=== PATIENT | female | born 1950 | race Caucasian/White ===

== ENCOUNTER → 2017-11-25 | Outpatient (CLI) | payer MEDICARE | LOC: RAH 11-24 16:58 | PROVIDERS: ATTEND Internal Medicine | DX: M25.552 Pain in left hip (principal) | CPT/HCPCS: 73502 ==

== ENCOUNTER → 2017-12-08 | Outpatient (CLI) | payer MEDICARE | END | disposition home or self-care (01) | LOC: RAH 09:48 | PROVIDERS: ATTEND Internal Medicine | DX: R01.1 Cardiac murmur, unspecified (principal); R53.83 Other fatigue | CPT/HCPCS: 93306 ==

== ENCOUNTER → 2017-12-24 | Outpatient (CLI) | payer MEDICARE | END | disposition home or self-care (01) | LOC: RAH 09:30 | PROVIDERS: ATTEND Internal Medicine | DX: Z12.31 Encounter for screening mammogram for malignant neoplasm of breast (principal) | CPT/HCPCS: 77067 ==

== ENCOUNTER → 2018-07-26 | Outpatient (CLI) | payer MEDICARE | END | disposition home or self-care (01) | LOC: RAH 11:28 | PROVIDERS: ATTEND Internal Medicine | DX: E04.2 Nontoxic multinodular goiter (principal) | CPT/HCPCS: 76536 ==

== ENCOUNTER → 2020-07-09 | Outpatient (CLI) | payer MEDICARE | END | disposition home or self-care (01) | LOC: RAH 10:19 | PROVIDERS: ATTEND Internal Medicine | DX: E04.2 Nontoxic multinodular goiter (principal) | CPT/HCPCS: 76536 ==

== ENCOUNTER → 2020-09-10 | Outpatient (CLI) | payer MEDICARE | END | disposition home or self-care (01) | LOC: RAH 10:33 | PROVIDERS: ATTEND Internal Medicine | DX: M25.552 Pain in left hip (principal) | CPT/HCPCS: 73502 ==

== ENCOUNTER → 2020-10-22 | Outpatient (CLI) | payer MEDICARE | END | disposition home or self-care (01) | LOC: RAH 11:18 | PROVIDERS: ATTEND Internal Medicine | DX: E04.1 Nontoxic single thyroid nodule (principal) | CPT/HCPCS: 76536 ==

== ENCOUNTER → 2021-12-11 | Outpatient (CLI) | payer MEDICARE | END | disposition home or self-care (01) | LOC: RAH 13:35 | PROVIDERS: ATTEND Internal Medicine | DX: E04.2 Nontoxic multinodular goiter (principal) | CPT/HCPCS: 76536 ==

== ENCOUNTER → 2022-12-25 | Outpatient (CLI) | payer MEDICARE | END | disposition home or self-care (01) | LOC: RAH 13:01 | PROVIDERS: ATTEND Internal Medicine | DX: E04.2 Nontoxic multinodular goiter (principal) | CPT/HCPCS: 76536 ==

== ENCOUNTER → 2023-01-04 | Outpatient (CLI) | payer MEDICARE | END | disposition home or self-care (01) | LOC: RAH 08:12 | PROVIDERS: ATTEND Internal Medicine | DX: R79.89 Other specified abnormal findings of blood chemistry (principal); D69.6 Thrombocytopenia, unspecified | CPT/HCPCS: 76700 ==

== ENCOUNTER → 2023-05-12 | Outpatient (CLI) | payer MEDICARE | END | disposition home or self-care (01) | LOC: RAH 14:38 | PROVIDERS: ATTEND Internal Medicine | DX: M47.812 Spondylosis without myelopathy or radiculopathy, cervical region (principal); M54.2 Cervicalgia; M54.50 Low back pain, unspecified | CPT/HCPCS: 72040; 72070; 72100 ==

== ENCOUNTER → 2024-12-07 | Outpatient (CLI) | payer MEDICARE ==
--- NOTE | 2024-12-07 15:48 | HMCIMG ---
DEXA BONE DENSITY SURVEY HISTORY: No additional history given. COMPARISON: None FINDINGS: Bone densitometry study was performed. Bone mineral density of the lumbar spine is 0.641 gram per centimeter square which corresponds to a T score of -3.7 and a Z score of -1.4. Bone mineral density of the left hip is 0.774 grams per centimeter square which corresponds to a T score of -1.4 and a Z score of 0.3. IMPRESSION: 1. Osteoporosis of the lumbar spine and osteopenia left hip.
== END | disposition home or self-care (01) ==
LOC: RAH 14:06
PROVIDERS: ATTEND Internal Medicine
DX: Z13.820 Encounter for screening for osteoporosis (principal); M81.0 Age-related osteoporosis without current pathological fracture; M85.852 Other specified disorders of bone density and structure, left thigh
CPT/HCPCS: 77080

== ENCOUNTER → 2025-09-05 | Outpatient (CLI) | payer MEDICARE ==
--- NOTE | 2025-09-06 15:03 | HMCIMG ---
STUDY MR lumbar spine without intravenous contrast HISTORY Right-sided sciatica. TECHNIQUE Multiplanar multisequence MRI of the lumbar spine was performed without intravenous contrast. COMPARISON Lumbar spine radiographs dated 05/12/23 15:01 EDT. FINDINGS VERTEBRAE No acute compression fracture is identified. Multiple vertebral body hemangiomas are present at T10, T11, T12, and L1 with characteristic high T1 and T2 signal, without extraosseous extension or pathologic fracture. No suspicious marrow-replacing lesion is seen. ALIGNMENT There is grade I retrolisthesis of L1 on L2. Grade I anterolisthesis of L5 on S1 is present, associated with a right-sided pars interarticularis defect. Overall lumbar lordosis is preserved without high-grade listhesis. SPINAL CORD AND CAUDA EQUINA Conus medullaris terminates at a normal level with normal signal. Cauda equina nerve roots are preserved in signal; sites of exiting nerve root compromise are detailed below. DISC AND FACET FINDINGS BY LEVEL L1L2 Mild disc desiccation without significant bulge or protrusion. No central canal or foraminal stenosis. L2L3 Diffuse disc bulge with annular fissuring. There is mild bilateral neural foraminal narrowing without high-grade root deformation, compatible with mild foraminal stenosis. Central canal remains adequately patent. L3L4 Asymmetric degenerative disc disease with a posterior central to slightly right paracentral disc protrusion and annular fissure. Mild bilateral foraminal narrowing is present, without definite high-grade compression, corresponding to mild foraminal stenosis. L4L5 Advanced disc degeneration with loss of disc height and diffuse disc bulge. Mild facet arthrosis is present. These findings result in mild bilateral foraminal stenosis with perineural fat effacement and contact of the exiting L4 nerve roots, without clear morphologic collapse of the roots. No significant central canal stenosis. L5S1 Severe degenerative disc disease with diffuse disc bulge and posterior central disc protrusion on a background of grade I anterolisthesis from a right-sided pars defect. There is severe right-sided facet arthrosis. These combined changes produce right foraminal stenosis with deformity and compression of the exiting right L5 nerve root, compatible with compressive radiculopathy. Left foramen is only mildly narrowed. Central canal remains adequately patent. PARASPINAL SOFT TISSUES AND EXTRASPINAL FINDINGS Paraspinal musculature demonstrates mild chronic fatty atrophy. No paraspinal fluid collection or mass is identified. Within the limited field of view, the gallbladder demonstrates low-signal dependent material consistent with sludge and/or microlithiasis without wall thickening or pericholecystic fluid. 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 L4L5: Advanced disc degeneration with diffuse bulge and facet arthrosis resulting in mild bilateral foraminal stenosis with root contact but no high-grade compression. L3L4 and L2L3: Diffuse and asymmetric disc disease with annular fissuring and mild foraminal stenosis, without high-grade canal or foraminal compromise. * Grade I retrolisthesis of L1 on L2 without associated high-grade stenosis. 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 * Gallbladder sludge/microlithiasis incidentally noted, without MRI evidence of acute cholecystitis. /[place]
== END | disposition home or self-care (01) ==
LOC: CANPRECLI → RAH 15:02
PROVIDERS: ATTEND Internal Medicine
DX: M47.817 Spondylosis without myelopathy or radiculopathy, lumbosacral region (principal); M54.31 Sciatica, right side; M47.816 Spondylosis without myelopathy or radiculopathy, lumbar region; M43.17 Spondylolisthesis, lumbosacral region; M51.379 Other intervertebral disc degeneration, lumbosacral region without mention of lumbar back pain or lower extremity pain; M48.07 Spinal stenosis, lumbosacral region; D18.09 Hemangioma of other sites; K82.8 Other specified diseases of gallbladder; M51.27 Other intervertebral disc displacement, lumbosacral region; M25.78 Osteophyte, vertebrae
CPT/HCPCS: 72148